=== PATIENT | female | born 1980 | race Caucasian/White ===

== ENCOUNTER 2016-04-15 12:02 | Observation (INO) ==
[2016-04-15] MEDS ORDERED: HYDROmorphone 2 MG/1 ML VIAL IM STA (13:10)
[2016-04-15] MEDS ORDERED: PROMETHAZINE 25 MG/1 ML VIAL IM STA (13:10)
[2016-04-15] MEDS ORDERED: HYDROmorphone 2 MG/1 ML VIAL ONE (13:33)
[2016-04-15] MEDS ORDERED: PROMETHAZINE 25 MG/1 ML VIAL ONE (13:33)
--- NOTE | 2016-04-15 13:33 | CT Report ---
CT head/brain wo con Indication: Headache. Visual disturbances. CT BRAIN WITHOUT CONTRAST DLP: 1012 mGy*cm Comparison: None. Date of admission: 04/15/2016. Technique: Axial noncontrast CT images of the brain were obtained. Findings: No acute hemorrhage, mass or mass effect. Ventricles and sulci are appropriate for age. Talley-white junction is maintained throughout. No focal bone lesions are shown. 75% opacification of frontal sinuses, 50% opacification the ethmoid air cells and concentric mucosal thickening of the maxillary sinus is noted. Sphenoid air cells are clear as are the mastoid air cells. Impression: No acute intracranial pathology. Relatively severe pansinusitis. PROCEDURE INTERPRETED AT [facility] [place] DEPARTMENT OF RADIOLOGY Final Report Signed by: Paul Dan M.D.
--- NOTE | 2016-04-15 13:36 | Emergency Department Note ---
Arrival - Arrival Chief Complaint: Headache Stated Complaint: visual problems,sent from Dr concepcion ED Nursing Triage Note: sent from Dr. Concepcion's office for CT. patient has been having migraines for the last week. +nausea, denies vomiting Mode of Arrival: Ambulatory Time Seen by Provider: 04/15/16 13:05 - History of Present Illness HPI Narrative: 35-year-old female presents today with complaint of migraine headache. Patient states she had blurred vision in one eye as well this morning which concerned her. This lasted several minutes. She was sent here after seeing Dr. Concepcion and have her eyes examined. States this is like her normal migraines with the exception of the blurred vision. Blurred vision has resolved. Pain is described as sharp and rates a 8 on a 10 scale. Allergies/Adverse Reactions: Allergies Allergy/AdvReac Type Severity Reaction Status Date / Time No Known Allergies Allergy Verified 04/15/16 12:22 Review of System - Review of System 12 point system: reviewed and no additional remarkable complaints except as stated - Review of System Constitutional: Present: as per HPI. Absent: fever Neurological: Present: headache Medical,Surgical,& Family Hx - Social History Smoking Status: Smoker, status unknown Frequency of Alcohol Use: Occasionally Type of Drug Use: None Exam Physical Examination: Gen.: Well-developed, well-nourished in no acute distress Neuro: Cranial nerves II through XII intact HEENT: Normocephalic. Pupils equal round and reactive to light with normal extraocular movement. Ear canals clear without discharge. Tympanic membranes with good light reflex and visualization of bony structures bilaterally. Throat without swelling, erythema or exudate. Neck: Supple without lymphadenopathy or nuchal rigidity Chest: Heart regular rate and rhythm without murmur. Lungs clear to auscultation and equal bilaterally. Abdomen: Soft and nontender without masses. Bowel sounds normoactive. Back: Without CVA or point tenderness. Extremities: Full range of motion. No joint effusion or tenderness Skin: Clean dry and intact Vital Signs: Vital Signs Temperature 97.2 F L 04/15/16 12:19 Pulse Rate 86 04/15/16 12:19 Respiratory Rate 04/15/16 12:19 Blood Pressure 131/91 04/15/16 12:19 O2 Sat by Pulse Oximetry 99 04/15/16 12:19 Results - Diagnostic Findings Procedure: CT: image reviewed by me, report reviewed by me (CT of head shows no acute intracranial pathology) Disposition Clinical Impression: Migraine Case discussed with: patient, patient's family Disposition: Disch To Home/Self Care Condition: Stable Additional Instructions: Follow-up with Dr. Tijerina as planned. Continue your medications as directed. Time of Disposition: 13:35
[2016-04-15] MEDS ORDERED: ACETAMINOPHEN 325 MG TABLET PO PRN (13:41)
[2016-04-15] MEDS ORDERED: ONDANSETRON 4 MG/2 ML VIAL IV PRN (13:41)
[2016-04-15] MEDS ORDERED: KETOROLAC 30 MG/1 ML VIAL IV PRN (13:41)
[2016-04-15 14:04] LABS: Basophils # 0.1 10*3/uL (0.0-0.2); Basophils % 0.4 % (0.0-0.8); Eosinophils # 0.4 10*3/uL (0.0-0.87); Eosinophils % 3.9 % (0.00-10.9); Hematocrit 42.9 VOL% (35.7-47.0); Immature Granulocytes % 0.7 %; Immature Granulocytes Absolute 0.08 #; Lymphocytes # 2.5 10*3/uL (1.4-4.0); Lymphocytes % 22.1 % (21.3-54.2); Mean Corpuscular Hemoglobin 33 PG (27-34); Mean Corpuscular Volume 94.1 FL (87-102); Mean Platelet Volume 9.7 FL (9.6-12.0); Monocytes # 0.9 10*3/uL (0.11-0.8); Monocytes % 7.5 % (1.7-12.7); Neutrophils # 7.4 10*3/uL (1.4-7.4); Neutrophils % 65.4 % (38.7-73.9); Platelet Count 375 10*3/uL (130-400); Red Blood Count 4.56 10*6/uL (3.8-5.5); Red Cell Distribution Width 11.9 % (9.3-17.3); White Blood Count 11.3 10*3/uL (4.5-13.71)
[2016-04-15 14:42] LABS: Alanine Aminotransferase 20 U/L (13-56); Albumin 4.2 G/DL (3.4-5.0); Alkaline Phosphatase 53 U/L (45-117); Aspartate Amino Transferase 12 U/L (0-37); Bilirubin,Total < 0.39 MG/DL (0.2-1.0); Blood Urea Nitrogen 7 MG/DL (7-18); Calcium 8.9 MG/DL (8.5-10.1); Glucose 81 MG/DL (74-106); Potassium 3.7 MMOL/L (3.5-5.1); Sodium 143 MMOL/L (136-145)
--- NOTE | 2016-04-15 14:57 | Ultrasound Report ---
History is headache and visual loss Grayscale, spectral Doppler, and color flow analysis performed and interpreted No significant plaque seen on the two-dimensional images Maximum systolic velocity are 82 in the right and 103 in the left Peak systolic ratios are 0.8 bilaterally There is antegrade flow in both vertebral arteries Impression: No significant plaque with less than 50% diameter stenoses bilaterally by NASCET criteria PROCEDURE INTERPRETED AT [facility] DEPARTMENT OF RADIOLOGY Final Report Signed by: Dr. Josseline Arboleda
--- NOTE | 2016-04-15 16:00 | Magnetic Resonance Report ---
Exam: MR head/brain wo con Date: 04/15/2016 1:41 PM Comparison: None Indication: Headache visual disturbances Technical: 1.5 Stephanie magnet Axial T1 pre-and , ADC, DWI, FLAIR, gradient echo and FSE T2 Sagittal T1 precontrast, FLAIR Coronal FSE T2 Contrast:0 cc Dotarem Findings: Exam reveals no ADC or diffusion diffusion abnormality.. The brainstem, cerebellum exhibit normal signal characteristics. The cerebral hemispheres exhibit normal signal characteristics. The corpus callosum is unremarkable. The seventh and eighth cranial nerves and cerebral pontine angles are intact. The pituitary gland, infundibulum and optic chiasm are intact. The paranasal sinuses exhibit abnormal signal characteristics. There is inflammation within the maxillary sinuses bilaterally with subtotal opacification on the right and polyp or retention cyst in the left maxillary antrum measuring approximately 1.3 cm. Mild inflammation in the ethmoid air cells also present. There is near complete opacification the right frontal sinus with minimal fluid and inflammation in the left frontal sinus. The sphenoid sinuses are relatively clear. The mastoid sinuses are unremarkable. The globes and intra-and extraconal spaces are unremarkable. Impression: 1. Bilateral maxillary and ethmoid sinusitis and frontal sinus disease on the right with minimal left frontal sinusitis. 2. No acute hemorrhage, infarction or mass effect. PROCEDURE INTERPRETED AT [facility] DEPARTMENT OF RADIOLOGY Final Report Signed by: Dr. Manolo Jha
[2016-04-15] MEDS: HYDROmorphone 2 MG/1 ML VIAL IV PRN ×2 (17:12→21:58)
[2016-04-15] MEDS: DOCUSATE SODIUM 100 MG CAPSULE PO SCH (21:05)
[2016-04-15] MEDS ORDERED: PROMETHAZINE 25 MG/1 ML VIAL IM PRN (23:09)
[2016-04-15] MEDS ORDERED: MONTELUKAST 10 MG TABLET PO SCH (23:30)
[2016-04-15] MEDS: FLUTICASONE 50 MCG NASAL SPRAY 16 GM BOTTLE BOTH NARES SCH (23:41)
[2016-04-15] MEDS: methylPREDNISolone SOD SUC 40 MG/1 ML VIAL IV SCH (23:41)
[2016-04-16] MEDS ORDERED: cefTRIAXone 250 MG in SODIUM CHLORIDE 0.9% 100 ML IV SCH
[2016-04-16] MEDS: HYDROmorphone 2 MG/1 ML VIAL IV PRN (06:17)
--- NOTE | 2016-04-16 07:46 | Family Practice History&Phys ---
Assessment and Plan (1) Amaurosis fugax of right eye Status: Acute Assessment and plan: 04/16/2016: MRI of the brain, CT of the brain and carotid Dopplers reveal no acute abnormality other than sinusitis. Current Visit: Yes (2) Migraine Status: Acute Assessment and plan: 04/16/2016: Migraine prophylaxis will be added. Appointment Dr. Boucher will be made as an outpatient Current Visit: Yes (3) Sinusitis, acute Status: Acute Assessment and plan: 04/16/2016: Patient will be begun on steroids and antibiotics. An appointment will be made with ENT. Current Visit: Yes History of Present Illness Chief complaint: Visual loss right eye History of present illness: Ms. Gottlieb is a 35 year old female Patient 35-year-old white female developed sudden onset of vision loss in her right eye today. Patient states it was in the temporal visual field and it was associated with a migrainous type headache. Patient states this was transient and she was seen and worked up by Dr. Concepcion in the office. He scheduled her for a CT brain and I admitted her after this for further evaluation. Patient had an MRI of the brain as well as carotid Dopplers both of which were normal with the exception of rather significant sinusitis in the right frontal and right maxillary sinuses. Patient states she has had a modest amount of sinus symptoms she has not had any fever or chills and she denies any sinus pain just little congestion. Patient's vision returned to her normal and when I examined her in the emergency room her visual brownlee were normal. She does have a history of migraine headaches. Home Medications Medication Instructions Recorded Confirmed Type No Known Home Medications [No 04/15/16 04/15/16 History Known Home Medications] Allergies Allergy/AdvReac Type Severity Reaction Status Date / Time No Known Allergies Allergy Verified 04/15/16 12:22 - Constitutional Constitutional: Present: headache(s). Absent: chills, fever(s) - EENT Eyes: Present: as per HPI, loss of vision Ears: Absent: decreased hearing, ear pain Nose, mouth and throat: Absent: dysphagia, nasal congestion, sore throat - Cardiovascular Cardiovascular: Absent: chest pain at rest, chest pain with activity, orthopnea , palpitations - Respiratory Respiratory: Absent: cough, dyspnea, dyspnea on exertion, wheezing - Gastrointestinal Gastrointestinal: Absent: abdominal pain, diarrhea, dyspepsia, dysphagia, nausea , vomiting - Genitourinary Genitourinary: Absent: difficulty urinating, dysuria, hematuria, urinary frequency, urinary hesitancy - Musculoskeletal Musculoskeletal: Absent: back pain, muscle cramps - Neurological Neurological: Present: headache(s). Absent: abnormal speech, confusion, dizziness, focal weakness, frequent falls, numbness, paresthesias - Psychiatric Psychiatric: Absent: anxiety, confusion, depression - Endocrine Endocrine: Absent: fatigue, polydipsia, polyphagia - Hematologic/Lymphatic Hematologic/Lymphatic: Absent: easy bleeding, easy bruising Medical,Surgical,& Family Hx - Medical History Cardio: History of: Hypertension Neurology: History of: Migraine HEENT: History of: Ear Problem Respiratory: History of: Asthma - Surgical History HEENT Surgeries: Surgical HX of: Eye Surgery, Tonsilectomy & Adenoidectomy Abdominal Surgeries: Surgical HX of: Appendectomy, Cholecystectomy Reproductive Surgeries: Surgical HX of;: Hysterectomy - Family History Family History: Reports;: Family Diabetes (mom), Family Heart Disease (dad), Family Hypertension (dad, mother) - Social History Smoking Status: Smoker, status unknown Frequency of Alcohol Use: Occasionally Type of Drug Use: None Exam - Constitutional Vitals: Period Temp Pulse Resp BP Sys/Domínguez Pulse Ox Last 24 Hr 97.4 F-98.0 F 68-90 18-20 91-120/55-81 94-98 Exam: General: Objective patient is a well-developed white female in no acute distress. HEENT: Pupils equal and reactive to light. Patent nares and airway Neck: No meningismus, adenopathy, thyromegaly. There are no auscultated carotid bruits. Cardiovascular: Regular rhythm. No murmurs or gallops Chest: Clear to auscultation without rales rhonchi wheezes. Abdomen: Soft nontender to palpation No masses, rebound, guarding or tenderness. Neuro: Cranial nerves intact and DTRs and strength symmetric in all extremities. Patient had intact visual brownlee. She had normal gait with normal tandem walk and normal finger to nose. She had no dysmetria or stereoagnosis. Romberg was negative as well Dermatologic: No evidence of abnormal lesions or masses. Musculoskeletal: There is no joint swelling or tenderness or deformity. Results - Labs CBC & BMP: 04/15/16 13:50 01/19/17 13:50 Lab Results: I have reviewed the past 24 hour labs - Diagnostic Findings Procedure: CT: report reviewed by me (Sinusitis evident.), MRI: report reviewed by me (No evidence of acute adenopathy other than sinusitis), Ultrasound: report reviewed by me (No carotid stenosis)
--- NOTE | 2016-04-16 07:55 | Discharge Summary ---
Hospital Course - Hospital Course Hospital Course: Patient is a 35-year-old white female was admitted through the emergency room with intractable headache and sudden loss of vision in the right eye. Certainly concerned that this may represent amaurosis fugax. Patient had CT of the brain the emergency room which revealed pansinusitis. MRI of the brain revealed the same findings with no acute intracranial abnormality noted. Carotid Dopplers were obtained which were normal. Patient has had no fever or sinusitis pain. It is felt that she had a complex migraine which may in part be triggered by her sinus disease. She was begun on IV antibiotics. She feels much better this morning was trying to go home. I am going to get an outpatient appointment with Dr. Boucher and begin her on migraine prophylaxis. She will obviously be started on oral antibiotics and steroids as well. Diagnosis - Discharge Diagnosis (1) Amaurosis fugax of right eye Status: Acute (2) Migraine Status: Chronic (3) Sinusitis, acute Status: Acute Discharge Plan - Discharge Data Disposition: Disch To Home/Self Care Condition at Discharge: Stable Discharge Diet: advance to your usual diet Activity: resume usual activities as tolerated Hygiene: no restrictions Weight Bearing at Discharge: full weight bearing Driving: no restrictions Contact your physician if you experience:: fever over 101 - Discharge Medications New Amoxicillin/Clav Tab [Augmentin Tab] 875 mg PO BID #20 tablet Topiramate [Trokendi XR] 50 mg PO DAILY #30 capsule predniSONE TAB [PredniSONE] 40 mg PO DAILY #10 tablet Acetaminophen Tab [Tylenol Tab] 650 mg PO Q6H PRN #0 tablet PRN Reason: Fever > 100.4 Or Headache HYDROcodone/ACETAMIN 5-325 [[place] 5-325] 1 tablet PO Q6H #20 tablet - Follow Up or Referral Follow Up: Kenrick Boucher MD [Physician] - 2 Weeks Jose Carlos Ernst DO [Physician] - 2 Weeks - Forms/Instructions Exam - Constitutional Vitals: Period Temp Pulse Resp BP Sys/Domínguez Pulse Ox Last 24 Hr 97.4 F-98.0 F 68-90 18-20 91-120/55-81 94-98 Exam: General: Objective patient is a well-developed white female in no acute distress. HEENT: Pupils equal and reactive to light. Patent nares and airway Neck: No meningismus, adenopathy, thyromegaly. There are no auscultated carotid bruits. Cardiovascular: Regular rhythm. No murmurs or gallops Chest: Clear to auscultation without rales rhonchi wheezes. Abdomen: Soft nontender to palpation No masses, rebound, guarding or tenderness. Neuro: Cranial nerves intact and DTRs and strength symmetric in all extremities. Patient had intact visual brownlee. She had normal gait with normal tandem walk and normal finger to nose. She had no dysmetria or stereoagnosis. Romberg was negative as well Dermatologic: No evidence of abnormal lesions or masses. Musculoskeletal: There is no joint swelling or tenderness or deformity. Discharge Results Procedures and tests throughout hospitalization: CT, MRI and carotid Doppler studies are noted. Labs on day of discharge: Labs from last 24 hours 04/15/16 04/15/16 13:50 13:50 WBC 11.3 RBC 4.56 Hgb 15.0 Hct 42.9 MCV 94.1 MCH 33 MCHC 35.0 RDW 11.9 Plt Count 375 MPV 9.7 Neut % (Auto) 65.4 Lymph % (Auto) 22.1 Hand % (Auto) 7.5 Eos % (Auto) 3.9 Baso % (Auto) 0.4 Neut # (Auto) 7.4 Lymph # (Auto) 2.5 Hand # (Auto) 0.9 H Eos # (Auto) 0.4 Baso # (Auto) 0.1 Immature Gran % 0.7 Nucleated RBC % 0.0 Immature Gran # 0.08 Nucleated RBCs # 0.00 Sodium 143 Potassium 3.7 Chloride 108 H Carbon Dioxide 24 Anion Gap 14.7 BUN 7 Creatinine 0.70 GFR Calculation 119 BUN/Creatinine Ratio 10.00 Glucose 81 Calculated Osmolality 281.0 Calcium 8.9 Total Bilirubin < 0.39 AST 12 ALT 20 Alkaline Phosphatase 53 Total Protein 8.0 Albumin 4.2 Globulin 3.8 H Albumin/Globulin Ratio 1.1 DS: Provider Date of admission: 04/15/16 13:41 Primary care physician: . No PCP Attending physician on admission: Milo Tijerina MD Discharging clinician: Milo Tijerina MD Expected date of discharge: 04/16/16
[2016-04-16] MEDS ORDERED: PANTOPRAZOLE 40 MG TABLET PO SCH (09:00)
[2016-04-16] MEDS ORDERED: cefTRIAXone 1,000 MG in SODIUM CHLORIDE 0.9% 100 ML IV ONE (09:00)
[2016-04-16] MEDS ORDERED: cefTRIAXone 1,000 MG VIAL IM ONE (10:03)
[2016-04-16 16:08] VITALS: BP 102/57
[2016-04-16] MEDS: methylPREDNISolone SOD SUC 40 MG/1 ML VIAL IV SCH (20:54)
[2016-04-16] MEDS: DOCUSATE SODIUM 100 MG CAPSULE PO SCH (20:55)
[2016-04-16] MEDS: FLUTICASONE 50 MCG NASAL SPRAY 16 GM BOTTLE BOTH NARES SCH (20:55)
== END 2016-04-16 10:20 | disposition home or self-care (01) ==
LOC: N.ED 12:02 → INTOOBSV 13:41 → N.EDINP 14:04 → N.2E 16:09
PROVIDERS: ADMIT Family Medicine; ATTEND Family Medicine

== ENCOUNTER 2016-05-18 23:36 | Observation (INO) ==
[2016-05-18] MEDS ORDERED: ONDANSETRON 4 MG/2 ML VIAL IV STA (23:55)
[2016-05-18] MEDS ORDERED: HYDROmorphone 2 MG/1 ML VIAL IV STA (23:55)
[2016-05-18] MEDS ORDERED: SODIUM CHLORIDE 0.9% 1,000 ML IV STA (23:55)
[2016-05-18] MEDS ORDERED: METOCLOPRAMIDE 10 MG/2 ML VIAL IV STA (23:56)
[2016-05-18] MEDS ORDERED: HYDROmorphone 2 MG/1 ML VIAL ONE (23:57)
[2016-05-18] MEDS ORDERED: ONDANSETRON 4 MG/2 ML VIAL ONE (23:57)
[2016-05-19 00:41] LABS: Apearance,Urine CLEAR (Clear); Bilirubin,Urine Negative (Negative); Blood, Urine Negative (Negative); Glucose,Urine (UA) Negative (Negative); Ketones,Urine 5 mg/dL (Negative); Mucus,Urine Occasional /LPF (Occasional); Nitrite,Urine Negative (Negative); Protein,Urine Negative; RBC,Urine 1 /HPF (0-4); Squamous Epithelial Cell,Urine Occasional /HPF (0-10); Urine Color Yellow (Yellow); Urine Urobilinogen < 2.0 EU/DL (0.2-1.0); WBC,Urine 1 /HPF (0-6)
[2016-05-19] MEDS ORDERED: diphenhydrAMINE 50 MG/1 ML VIAL IV PRN (00:47)
[2016-05-19] MEDS ORDERED: ONDANSETRON 4 MG/2 ML VIAL IV PRN ×2 (00:47→13:37)
[2016-05-19 00:53] LABS: Basophils # 0.1 10*3/uL (0.0-0.2); Basophils % 0.3 % (0.0-0.8); Eosinophils # 0.3 10*3/uL (0.0-0.87); Eosinophils % 1.9 % (0.00-10.9); Hematocrit 44.5 VOL% (35.7-47.0); Hemoglobin 15.8 GM/DL (12.0-16.0); Immature Granulocytes % 0.9 %; Immature Granulocytes Absolute 0.15 #; Lymphocytes # 0.9 10*3/uL (1.4-4.0); Lymphocytes % 5.4 % (21.3-54.2); Mean Corpuscular HGB Conc 35.5 GM/DL (32-36); Mean Corpuscular Hemoglobin 33 PG (27-34); Mean Corpuscular Volume 92.5 FL (87-102); Mean Platelet Volume 9.9 FL (9.6-12.0); Monocytes # 1.1 10*3/uL (0.11-0.8); Monocytes % 6.5 % (1.7-12.7); Neutrophils # 14.1 10*3/uL (1.4-7.4); Platelet Count 397 T/CUMM (130-400); Red Blood Count 4.81 MC/CUMM (3.8-5.5); Red Cell Distribution Width 11.6 % (9.3-17.3); White Blood Count 16.6 T/CUMM (4-12)
[2016-05-19] MEDS ORDERED: METOCLOPRAMIDE 10 MG/2 ML VIAL ONE (00:53)
[2016-05-19] MEDS ORDERED: HYDROmorphone PCA 30 MG/30 ML SYRINGE IV SCH (01:00)
[2016-05-19 01:09] LABS: Albumin 3.9 G/DL (3.4-5.0); Bilirubin,Total 0.7 MG/DL (0.2-1.0); Calcium 8.3 MG/DL (8.5-10.1); Osmolality,Calculated 284.1 MOS/KG (273-304); Potassium 3.8 MMOL/L (3.5-5.1); Total Protein 7.4 G/DL (6.4-8.3)
--- NOTE | 2016-05-19 01:19 | Emergency Department Note ---
IShiv Gwan, am scribing for, and in the presence of, Rubens Trejo MD 00:01. IMaya Kevin Lee, MD, personally performed the services described in this documentation, ascribed by Mojgan Chaney in my presence, and it is both accurate and complete . Arrival - Arrival Chief Complaint: Nausea/Vomiting/Diarrhea Stated Complaint: 2 sinus surgery , vomitting,and nose bleeding , pa ED Nursing Triage Note: pt ambulatory to triage with c/o having vomiting and nasal bleeding from right nare. pt states onset tonight around 1800. pt states she has had 2 sinus surgeries 1st one on Apr.30 and 2nd one on . by dr. Ernst. no bleeding noted at this time. pt is crying in triage. Mode of Arrival: Ambulatory Limitations: No Limitations Source: Patient, Family (Father ), Old Records Reviewed, RN Notes Reviewed - History of Present Illness HPI Narrative: Pt is a 35 y/o female who presents to the ED with a c/o chills, vomiting, epistaxis, abd pain and JACKSON with an onset 1800 today. Patient stated that she recently had 2 sinus surgeries (04/30/2016 and 05/14/2016) performed by Dr. Ernst. She continued to note that she began having sxs today after she came home from work and since onset her sxs have progressively gotten worse. Patient describes her pain as severe. She confirmed that she has been around people with the flu. She denies having any fever. During exam, pt was crying. No other problems/complaints reported in ED. Onset (ago): hour(s) Consistency: constant Severity: moderate Allergies/Adverse Reactions: Allergies Allergy/AdvReac Type Severity Reaction Status Date / Time No Known Allergies Allergy Verified 05/14/16 06:29 Home Medications: Home Medications Medication Instructions Recorded Confirmed Type Topiramate [Trokendi XR] 50 mg PO DAILY #30 capsule 04/16/16 05/19/16 Rx Review of System - Review of System 12 point system: reviewed and no additional remarkable complaints except as stated - Review of System Constitutional: Present: as per HPI, chills Head/Ears/Nose/Throat: Present: see HPI, epistaxis Gastrointestinal: Present: as per HPI, abdominal pain, vomiting Neurological: Present: as per HPI, headache Medical,Surgical,& Family Hx - Medical History Cardio: History of: Hypertension Neurology: History of: Migraine No history of: Seizures HEENT: History of: Ear Problem Respiratory: History of: Asthma - Surgical History HEENT Surgeries: Surgical HX of: Eye Surgery, Tonsilectomy & Adenoidectomy Abdominal Surgeries: Surgical HX of: Appendectomy, Cholecystectomy Reproductive Surgeries: Surgical HX of;: Dilation and Curettage, Hysterectomy - Family History Family History: Reports;: Family Diabetes (mom), Family Heart Disease (dad), Family Hypertension (dad, mother) - Social History Smoking Status: Current some day smoker Frequency of Alcohol Use: None Type of Drug Use: None Exam Vital Signs: Vital Signs Temperature 98.3 F 05/18/16 23:41 Pulse Rate 71 05/19/16 00:00 Respiratory Rate 20 05/19/16 00:00 Blood Pressure 100/69 05/19/16 00:00 O2 Sat by Pulse Oximetry 100 05/19/16 00:00 - General General appearance: alert, other (patient was crying ) - Head Head exam: Present: atraumatic, normocephalic - Eye Eye exam: Present: PERRL, EOMI, other (bruising around bilateral eyes consistant with prior sinus surgeries) - ENT ENT exam: Present: normal oropharynx, mucous membranes moist, TM's normal bilaterally, normal external ear exam - Neck Neck exam: Present: full ROM, trachea midline. Absent: tenderness, meningismus , lymphadenopathy, thyromegaly - Chest Chest inspection: Present: symmetric chest wall rise. Absent: tenderness - Respiratory Respiratory exam: Present: normal lung sounds bilaterally. Absent: respiratory distress - Cardiovascular Cardiovascular exam: Present: regular rate, normal rhythm, normal heart sounds. Absent: murmur, rubs, gallop - Abdominal Exam Abdominal exam: Present: soft, normal bowel sounds. Absent: distention, tenderness, guarding - Extremities Exam Extremities exam: Present: full ROM. Absent: tenderness, pedal edema, calf tenderness - Back Exam Back exam: Present: full ROM. Absent: tenderness - Neurological Exam Neurological exam: Present: alert, oriented X3, CN II-XII intact. Absent: motor sensory deficit - Skin Skin exam: Present: warm, dry, intact, normal color Results - Labs CBC & BMP: 05/19/16 00:35 05/19/16 00:35 Lab Results: I have reviewed the patients labs Labs: Laboratory Tests 05/19/16 00:35 Urine pH 6.0 Ur Specific [place] 1.020 Urine Ketones 5 Urine Urobilinogen < 2.0 H Urine RBC 1 Urine WBC 1 Ur Squamous Epith Cells Occasional Urine Mucus Occasional Urine Test Negative Laboratory Tests 05/19/16 00:35 WBC 16.6 H RBC 4.81 Hgb 15.8 Hct 44.5 Plt Count 397 Neut % (Auto) 85.0 H Lymph % (Auto) 5.4 L Neut # (Auto) 14.1 H Lymph # (Auto) 0.9 L Chambers # (Auto) 1.1 H - Diagnostic Findings Procedure: CT Abdomen and Pelvis: image reviewed by me (no acute), CT: image reviewed by me (sinclair sinusitis) Disposition Clinical Impression: Post-operative pain Case discussed with: patient Disposition: Still a Patient Condition: Stable
[2016-05-19] MEDS: LACTATED RINGERS 1,000 ML IV SCH (02:04)
--- NOTE | 2016-05-19 07:01 | CT Report ---
CT sinus wo con Indication: Sinus surgery, epistaxis Comparison: None available Technique: Axial CT imaging of the sinusitis was performed without contrast. Computer reformatting is viewed in the coronal plane. Findings: There has been superior and middle turbinate resection and partial ethmoidectomies bilaterally. There is mucosal thickening nearly completely occupying the both sphenoids, left maxillary and right frontal sinuses but also seen in the remaining sinuses. No abnormal soft tissue density is present. Septum is near midline. No evidence of orbit abnormality is seen. Impression: Sinus disease and surgical changes as described above. PROCEDURE INTERPRETED AT [facility] DEPARTMENT OF RADIOLOGY Final Report Signed by: Dr. Jair Watson
--- NOTE | 2016-05-19 07:34 | CT Report ---
CT abdomen pelvis Indication: Abdominal pain, nausea vomiting Comparison: 14 June 2013 Technique: Axial CT imaging of the abdomen and pelvis is performed without contrast. Findings: Cardiac and lung bases are within normal limits CT abdomen: The liver spleen pancreas and adrenal glands are normal in size and density. No evidence of focal lesion is demonstrated in these solid organs. Gallbladder is been removed. Kidneys are normal in size and density. No evidence of hydronephrosis or nephrolithiasis is seen. The bowel caliber is normal and no wall thickening or adjacent inflammatory change is seen. No evidence of free fluid or free air is present. Appendix is not seen. CT pelvis: The bowel and bladder appear within normal limits. The pelvic organs show no evidence of abnormality Impression: No evidence of acute findings demonstrated PROCEDURE INTERPRETED AT [facility] [place] DEPARTMENT OF RADIOLOGY Final Report Signed by: Dr. Jari Watson
[2016-05-19] MEDS ORDERED: OXYMETAZOLINE 0.05% NASAL SPRAY 15 ML BOTTLE ONE (12:01)
[2016-05-19] MEDS ORDERED: MUPIROCIN 2% OINT 22 GM TUBE TOP ONE (12:01)
[2016-05-19] MEDS ORDERED: LIDOCAINE 1%/EPI INJ 20 ML VIAL ONE (12:01)
[2016-05-19] MEDS ORDERED: MIDAZOLAM 2 MG/2 ML VIAL ONE ×2 (12:17→13:51)
[2016-05-19] MEDS ORDERED: SCOPOLAMINE 1.5 MG PATCH TRANSDERM ONE ×2 (12:23→12:26)
[2016-05-19] MEDS ORDERED: MIDAZOLAM 2 MG/2 ML VIAL IV ONE (12:27)
[2016-05-19] MEDS ORDERED: ONDANSETRON 4 MG/2 ML VIAL ONE ×2 (12:42→13:36)
[2016-05-19] MEDS ORDERED: LIDOCAINE 1% 5 ML VIAL ONE (12:42)
[2016-05-19] MEDS ORDERED: PROPOFOL 200 MG/20 ML VIAL IV ONE (12:42)
[2016-05-19] MEDS ORDERED: DEXAMETHASONE 10 MG/1 ML VIAL ONE (12:42)
[2016-05-19] MEDS ORDERED: ROCURONIUM 100 MG/10 ML VIAL IV ONE (12:42)
[2016-05-19] MEDS ORDERED: SUCCINYLCHOLINE 200 MG/10 ML VIAL ONE (12:42)
[2016-05-19] MEDS ORDERED: HYDROmorphone 2 MG/1 ML VIAL ONE (13:36)
[2016-05-19] MEDS: HYDROmorphone 2 MG/1 ML VIAL IV PRN ×4 (13:38→13:53)
[2016-05-19] MEDS ORDERED: fentaNYL 100 MCG/2 ML VIAL ONE (13:51)
[2016-05-19] MEDS ORDERED: SEVOFLURANE 1 UNIT/15 MINUTE INH ONE (13:51)
[2016-05-19] MEDS ORDERED: ZOLPIDEM 5 MG TABLET PO PRN (14:30)
[2016-05-19] MEDS: DEXAMETHASONE 4 MG/1 ML VIAL IV SCH ×2 (17:00→22:32)
[2016-05-20] MEDS ORDERED: SODIUM CHLORIDE 0.9% 500 ML IV ONE (01:06)
[2016-05-20] MEDS: DEXAMETHASONE 4 MG/1 ML VIAL IV SCH (05:15)
[2016-05-20] MEDS: LACTATED RINGERS 1,000 ML IV SCH ×3 (05:16→05:17)
[2016-05-20] MEDS ORDERED: KETOROLAC 30 MG/1 ML VIAL IV PRN (05:43)
[2016-05-20] MEDS ORDERED: KETOROLAC 30 MG/1 ML VIAL IV SCH (06:00)
--- NOTE | 2016-05-20 08:16 | History & Physical Report ---
Assessment and Plan - Time spent with patient Time spent with patient: Less than 30 minutes (1) Epistaxis Status: Acute Assessment and plan: Taken back to surgery for debridement irrigation and application of FloSeal for control of epistaxis Current Visit: Yes (2) Migraine Status: Chronic Current Visit: No (3) Post-operative pain Status: Acute Current Visit: Yes History of Present Illness Chief complaint: Face pain with epistaxis History of present illness: Ms. Gottlieb is a 35 year old female status post 2+ weeks sinus surgery for nasal polyps with an ongoing recovery with multiple debridements and continued face pain and new onset epistaxis she went to the emergency room where she was subsequently admitted for a repeat debridement and packing please see surgical note. Home Medications Medication Instructions Recorded Confirmed Type No Known Home Medications [No 05/19/16 05/19/16 History Known Home Medications] Allergies Allergy/AdvReac Type Severity Reaction Status Date / Time No Known Allergies Allergy Verified 05/14/16 06:29 12 point system: reviewed and no additional remarkable complaints except as stated Medical,Surgical,& Family Hx - Medical History Cardio: History of: Hypertension Neurology: History of: Migraine No history of: Seizures HEENT: History of: Ear Problem Endocrine: No history of: Diabetes Mellitus (IDDM), Diabetes Mellitus (NIDDM) Respiratory: History of: Asthma (as a child) Gastrointestinal: History of: GERD Hematology: History of: Anemia - Surgical History Cardiac Surgeries: Patient Denies: Cardiac Catheterization Thoracic Surgeries: Patient denies;: Lobectomy Neurologic Surgeries: Patient denies: Neurologic Surgery HEENT Surgeries: Surgical HX of: Eye Surgery (as a baby), Tonsilectomy & Adenoidectomy Patient denies: Thyroid Surgery Abdominal Surgeries: Surgical HX of: Abdominal Surgery, Appendectomy, Cholecystectomy Reproductive Surgeries: Surgical HX of;: Dilation and Curettage, Gynecologic Surgery, Hysterectomy Patient denies;: Genitourinary Surgery Orthopedic Surgeries: Surgical HX of;: Orthopedic Surgery (right wrist) - Family History Family History: Reports;: Family Diabetes (mom), Family Heart Disease (dad), Family Hypertension (dad, mother) Comment Only: Additional Family History (mom COPD) - Social History Smoking Status: Current some day smoker Frequency of Alcohol Use: None Type of Drug Use: None Exam - Constitutional Vitals: Period Temp Pulse Resp BP Sys/Domínguez Pulse Ox Last 24 Hr 97.7 F-99.0 F 60-109 16-20 83-110/46-75 92-100 General appearance: normal weight, no acute distress - Head Head exam: Present: normal inspection, normocephalic - Eye Eye exam: Present: EOMI Pupils: Present: HERBIE - ENT ENT exam: Present: normal exam, normal external ear exam, normal oropharynx - Neck Neck exam: Present: normal inspection - Respiratory Respiratory exam: Present: other (No shortness of breath or tachypnea) - Cardiovascular Cardiovascular exam: Present: regular rate and rhythm - GI/Abdominal GI/Abdominal exam: Present: soft (No organomegaly grossly) - Neurological Exam Neurological exam: Present: alert, oriented X3, CN II-XII intact - Psychiatric Psychiatric exam: Present: normal affect, normal mood - Skin Skin exam: Present: normal color, warm Results - Labs CBC & BMP: 05/19/16 00:35 05/19/16 00:35
--- NOTE | 2016-05-20 08:21 | Discharge Summary ---
Hospital Course - Hospital Course Hospital Course: Debridement with bilateral trigeminal nerve block irrigation with control of epistaxis tolerated well observed overnight for continued pain control discharge this morning - Time spent with patient Time with patient DS: Less than 30 minutes Diagnosis - Discharge Diagnosis (1) Epistaxis Status: Acute (2) Migraine Status: Chronic (3) Post-operative pain Status: Acute Specialty Discharge - Follow Up or Referrals Follow up with: Jose Carlos Ernst DO [Physician] - 1 Week Discharge Plan - Discharge Data Disposition: Disch To Home/Self Care Condition at Discharge: Stable Discharge Diet: advance to your usual diet Activity: resume usual activities as tolerated - Follow Up or Referral - Forms/Instructions Exam - Constitutional Vitals: Period Temp Pulse Resp BP Sys/Domínguez Pulse Ox Last 24 Hr 97.7 F-99.0 F 60-109 16-20 83-110/46-75 92-100 General appearance: normal weight, no acute distress - Head Head exam: Present: normal inspection, normocephalic - Eye Eye exam: Present: EOMI Pupils: Present: HERBIE - ENT ENT exam: Present: normal exam, normal external ear exam, normal oropharynx - Neck Neck exam: Present: normal inspection - Respiratory Respiratory exam: Present: other (No shortness of breath or tachypnea) - Cardiovascular Cardiovascular exam: Present: regular rate and rhythm - GI/Abdominal GI/Abdominal exam: Present: soft (No gross organomegaly) - Extremities Exam Extremities exam: Present: normal inspection, normal capillary refill - Neurological Exam Neurological exam: Present: alert, oriented X3, CN II-XII intact - Psychiatric Psychiatric exam: Present: normal affect, normal mood - Skin Skin exam: Present: normal color, warm Discharge Results Procedures and tests throughout hospitalization: Pending Orders 05/19/16 13:24 Allergen Profile, [facility] Routine DS: Provider Date of admission: 05/19/16 00:47 Primary care physician: Milo Tijerina MD Attending physician on admission: Jose Carlos Ernst DO Discharging clinician: Jose Carlos Ernst DO Expected date of discharge: 05/20/16
[2016-05-20 13:21] VITALS: BP 110/60
[2016-05-21 14:01] LABS: Immunoglobulin E 114 kU/L (<= 214)
== END 2016-05-20 12:00 | disposition home or self-care (01) ==
LOC: N.EDINP 23:36 → N.ED 23:36 → N.EDINP 05-19 01:24 → N.3E 05-19 01:42
PROVIDERS: ADMIT Otolaryngology; ATTEND Otolaryngology